=== PATIENT | female | born 1995 | race Caucasian/White ===

== ENCOUNTER 2018-09-24 20:01 | Emergency (ER) | payer SELFPAY ==
--- NOTE | 2018-09-24 20:52 | ER ---
Nurse's Notes [facility] Name: Regis Good Age: 22 yrs Sex: Female : 1995 Arrival Date: 09/24/2018 Time: 20:04 Bed 25 Private MD: Diagnosis: Foreign body removal ear Presentation: 09/24 20:06 Presenting complaint: Patient states: "I got this piercing in my ear and I guess my aj1 body is rejecting it because there's this big lump and yesterday it was bleeding, but noone can get it out" Reports pain to left ear. Transition of care: patient was not received from another setting of care. Onset of symptoms was September 24, 2018. Risk Assessment: Do you want to hurt yourself or someone else? Patient reports no desire to harm self or others. Initial Sepsis Screen: Does the patient meet any 2 criteria? HR > 90 bpm. No. Patient's initial sepsis screen is negative. Does the patient have a suspected source of infection? No. Patient's initial sepsis screen is negative. Care prior to arrival: None. 20:06 Method Of Arrival: Ambulatory aj 20:06 Acuity: EMILIANO 4 aj1 Triage Assessment: 20:08 General: Appears in no apparent distress. uncomfortable, Behavior is calm, cooperative, aj1 appropriate for age. Pain: Complains of pain in left ear Pain currently is 8 out of 10 on a pain scale. Neuro: Level of Consciousness is awake, alert, obeys commands, Oriented to person, place, time, situation. Cardiovascular: Patient's skin is warm and dry. Respiratory: Airway is patent Respiratory effort is even, unlabored, Respiratory pattern is regular, symmetrical. 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 - Social history:: Smoking status: Patient uses tobacco products, smokes one-half pack cigarettes per day. - Ebola Screening: : Patient denies travel to an Ebola-affected area in the 21 days before illness onset. Screenin:31 Abuse screen: Denies threats or abuse. Denies injuries from another. Nutritional aj screening: No deficits noted. Tuberculosis screening: No symptoms or risk factors identified. Fall Risk None identified. Assessment: 20:31 General: Appears in no apparent distress. uncomfortable, Behavior is calm, cooperative, aj appropriate for age. Pain: Complains of pain in left ear. Neuro: Level of Consciousness is awake, alert, obeys commands, Oriented to person, place, time, situation, Appropriate for age. Respiratory: Airway is patent Respiratory effort is even, unlabored, Respiratory pattern is regular, symmetrical. Derm: Skin is intact, is healthy with good turgor, Skin is pink, warm \\T\\ dry. normal. Vital Signs: 20:08 Pulse 102; Resp 18; Temp 97.8; Pulse Ox 98% ; Weight 79.38 kg (R); Height 5 ft. 5 in. aj1 (165.10 cm) (R); Pain 8/10; 20:10 BP 126 / 81; aj1 20:08 Body Mass Index 29.12 (79.38 kg, 165.10 cm) aj1 ED Course: 20:04 Patient arrived in ED. es 20:07 Triage completed. aj1 20:18 Mitchel German PA is PHCP. jr8 20:18 Kale Connelly MD is Attending Physician. jr8 20:18 Robert Mora MD is Attending Physician. jr8 20:22 Catia Alaniz, RN is Primary Nurse. aj 20:31 Patient has correct armband on for positive identification. aj 20:31 Assist provider with foreign body removal of earring from left tragus using hemostats, aj Set up for procedure. Performed by Mitchel SEGUNDO Patient tolerated well. Patient did not have IV access during this emergency room visit. Administered Medications: No medications were administered Outcome: 20:36 Discharge ordered by . jr8 20:52 Discharged to home ambulatory. aj 20:52 Condition: good 20:52 Discharge instructions given to patient, Instructed on discharge instructions, follow up and referral plans. Demonstrated understanding of instructions, follow-up care. 20:53 Patient left the ED. aj Signatures: Nasreen Goldberg RN RN aj1 Catia Alaniz RN RN [place] Mitchel German PA PA jr8
--- NOTE | 2018-09-24 20:52 | EDPHYS ---
Physician Documentation [facility] Name: Regis Good Age: 22 yrs Sex: Female : 1995 Arrival Date: 09/24/2018 Time: 20:04 Bed 25 Private MD: ED Physician Robert Mora HPI: 09/24 20:32 This 22 yrs old Female presents to ER via Ambulatory with complaints of Ear jr8 pain. 20:32 Patient with pain to tragus after having ear ring placed in that area. Stated that the jr8 pain is getting worse and now swelling. Tried to remove ring but cannot get it off . Onset: The symptoms/episode began/occurred gradually, 2 day(s) ago. Severity of symptoms: At their worst the symptoms were mild in the emergency department the symptoms are unchanged. The patient has not experienced similar symptoms in the past. The patient has not recently seen a physician. 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 - Social history:: Smoking status: Patient uses tobacco products, smokes one-half pack cigarettes per day. - Ebola Screening: : Patient denies travel to an Ebola-affected area in the 21 days before illness onset. ROS: 20:32 Eyes: Negative for injury, pain, redness, and discharge, Neck: Negative for injury, jr8 pain, and swelling, Cardiovascular: Negative for chest pain, palpitations, and edema, Respiratory: Negative for shortness of breath, cough, wheezing, and pleuritic chest pain, Abdomen/GI: Negative for abdominal pain, nausea, vomiting, diarrhea, and constipation, Back: Negative for injury and pain, MS/Extremity: Negative for injury and deformity, Skin: Negative for injury, rash, and discoloration, Neuro: Negative for headache, weakness, numbness, tingling, and seizure. 20:32 ENT: Positive for ear pain, Negative for injury or acute deformity, drainage from ear(s), rhinorrhea, sinus congestion, sinus pain, sore throat, difficulty swallowing, difficulty handling secretions, hoarseness. Exam: 20:32 Eyes: Pupils equal round and reactive to light, extra-ocular motions intact. Lids and jr8 lashes normal. Conjunctiva and sclera are non-icteric and not injected. Cornea within normal limits. Periorbital areas with no swelling, redness, or edema. ENT: Nares patent. No nasal discharge, no septal abnormalities noted. Tympanic membranes are normal and external auditory canals are clear. Left tragus with mild swelling secondary to ear ring being in place. No bleeding or discharge. Oropharynx with no redness, swelling, or masses, exudates, or evidence of obstruction, uvula midline. Mucous membranes moist. Neck: Trachea midline, no thyromegaly or masses palpated, and no cervical lymphadenopathy. Supple, full range of motion without nuchal rigidity, or vertebral point tenderness. No Meningismus. Cardiovascular: Regular rate and rhythm with a normal S1 and S2. No gallops, murmurs, or rubs. Normal PMI, no JVD. No pulse deficits. Respiratory: Lungs have equal breath sounds bilaterally, clear to auscultation and percussion. No rales, rhonchi or wheezes noted. No increased work of breathing, no retractions or nasal flaring. Abdomen/GI: Soft, non-tender, with normal bowel sounds. No distension or tympany. No guarding or rebound. No evidence of tenderness throughout. Back: No spinal tenderness. No costovertebral tenderness. Full range of motion. Skin: Warm, dry with normal turgor. Normal color with no rashes, no lesions, and no evidence of cellulitis. MS/ Extremity: Pulses equal, no cyanosis. Neurovascular intact. Full, normal range of motion. Neuro: Awake and alert, GCS 15, oriented to person, place, time, and situation. Cranial nerves II-XII grossly intact. Motor strength 5/5 in all extremities. Sensory grossly intact. Cerebellar exam normal. Normal gait. Vital Signs: 20:08 Pulse 102; Resp 18; Temp 97.8; Pulse Ox 98% ; Weight 79.38 kg (R); Height 5 ft. 5 in. aj1 (165.10 cm) (R); Pain 8/10; 20:10 BP 126 / 81; aj1 20:08 Body Mass Index 29.12 (79.38 kg, 165.10 cm) aj Procedures: 20:32 Foreign Body Removal: a ring, from the left ear, by using a hemostat, The patient jr8 tolerated the removal well, successfully removed . [facility]: 20:18 Patient medically screened. [facility] 20:32 Data reviewed: vital signs, nurses notes, and as a result, I will discharge patient. erika Data interpreted: Pulse oximetry: on room air is 98 %. Interpretation: normal. Counseling: I had a detailed discussion with the patient and/or guardian regarding: the historical points, exam findings, and any diagnostic results supporting the discharge/admit diagnosis, the need for outpatient follow up, a family practitioner, to return to the emergency department if symptoms worsen or persist or if there are any questions or concerns that arise at home. Administered Medications: No medications were administered Disposition: 09/25 13:58 Co-signature as Attending Physician, Robert Mora MD I agree with the assessment and [facility] plan of care. Disposition: 09/24/18 20:36 Discharged to Home. Impression: Foreign body removal ear . - Condition is Stable. - Discharge Instructions: Foreign Body. - Medication Reconciliation Form, Thank You Letter, Antibiotic Education, Prescription Opioid Use form. - Follow up: Private Physician; When: 2 - 3 days; Reason: Wound Recheck, Recheck today's complaints, Continuance of care, Re-evaluation by your physician. - Problem is new. - Symptoms have improved. Signatures: Nasreen Goldberg RN SIOBHAN aj1 Catia Alaniz RN RN aj Anderson, Corey, MD MD cha Roszak, Josh, PA PA jr8 Corrections: (The following items were deleted from the chart) 09/24 20:53 20:36 09/24/2018 20:36 Discharged to Home. Impression: Foreign body removal ear . aj Condition is Stable. Forms are Medication Reconciliation Form, Thank You Letter, Antibiotic Education, Prescription Opioid Use. Follow up: Private Physician; When: 2 - 3 days; Reason: Wound Recheck, Recheck today's complaints, Continuance of care, Re-evaluation by your physician. Problem is new. Symptoms have improved. jr8
== END 2018-09-24 20:53 | disposition home or self-care (01) ==
LOC: ER 20:01
DX: T16.2XXA Foreign body in left ear, initial encounter (principal); X58.XXXA Exposure to other specified factors, initial encounter; Y93.9 Activity, unspecified; Y92.9 Unspecified place or not applicable; Z88.5 Allergy status to narcotic agent
CPT/HCPCS: 99283